=== PATIENT | male | born 1965 | race Hispanic/Latino ===

== ENCOUNTER 2020-10-15 10:34 | Emergency (ER) | payer BC, OTHER ==
--- NOTE | 2020-10-15 10:46 | Emergency Department Report ---
ED Fall HPI - General Stated Complaint: RT WRIST INJURY Time Seen by Provider: 10/15/20 10:37 Source: patient - History of Present Illness Initial Comments: The patient was evaluated in the emergency department for symptoms described in the history of present illness. He/she was evaluated in the context of the global COVID-19 pandemic, which necessitated consideration that the patient might be at risk for infection with the virus that causes COVID-19. Institutional protocols and algorithms that pertain to the evaluation of patients at risk for COVID-19 are in a state of rapid change based on information released by regulatory bodies including the CDC and federal and state organizations. These policies and algorithms were followed during the patient's care in the emergency department. Please note that these policies, procedures and recommendations changed on a rapid basis. 55-year-old male presents to the emergency room for right wrist injury. Patient states he had fell back while climbing on a tractor and injured his right wrist. Patient states he did not lose consciousness it may have bumped his head. He denies any nausea no vomiting. States that he had injured his right wrist in the past as a young teenager with glasses but no broken bones. Patient currently takes no medications on a daily basis and has no past medical history. Patient rates his pain is a 10 out of 10 of his right wrist. 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 Occurred: work Loss of Consciousness: none Prolonged Down Time?: no Symptoms Prior to Fall: none Location - Extremities: Right: Arm (Wrist) Severity scale (0 -10): 10 Quality: sharp, stabbing, aching Context: other (Slipped) Associated Symptoms: denies - Related Data Previous Rx's Medication Instructions Recorded Last Taken Type HYDROcodone/APAP 7.5-325 [[place] 1 each PO Q6HR PRN #12 tablet 10/15/20 Unknown Rx 7.5/325] Naproxen 500 mg PO BID #20 tablet 10/15/20 Unknown Rx Allergies Allergy/AdvReac Type Severity Reaction Status Date / Time No Known Allergies Allergy Unverified 10/15/20 10:45 ED Review of Systems ROS: Stated complaint: RT WRIST INJURY Other details as noted in HPI Comment: All other systems reviewed and negative ED Past Medical Hx - Medications Home Medications: Home Medications Medication Instructions Recorded Confirmed Last Taken Type HYDROcodone/APAP 7.5-325 [[place] 1 each PO Q6HR PRN #12 tablet 10/15/20 Unknown Rx 7.5/325] Naproxen 500 mg PO BID #20 tablet 10/15/20 Unknown Rx ED Physical Exam - General General appearance: alert, in no apparent distress - Head Head exam: Present: atraumatic, normocephalic - Eye Eye exam: Present: normal appearance - ENT ENT exam: Present: normal external ear exam - Neck Neck exam: Present: normal inspection, full ROM - Respiratory Respiratory exam: Absent: accessory muscle use - Cardiovascular Cardiovascular Exam: Present: regular rate - Expanded Upper Extremity Exam Right Shoulder Exam: Present: normal inspection, full ROM Upper Arm exam: Present: normal inspection, full ROM Elbow exam: Present: normal inspection, full ROM Forearm Wrist exam: Present: tenderness, swelling, deformity. Absent: full ROM Hand Wrist exam: Present: tenderness, swelling, deformity. Absent: full ROM, erythema, amputation Vascular: Present: normal capillary refill - Neurological Exam Neurological exam: Present: alert, oriented X3, normal gait - Psychiatric Psychiatric exam: Present: normal affect, normal mood - Skin Skin exam: Present: warm, dry, intact, normal color. Absent: rash ED Course Vital Signs 10/15/20 10:51 Temperature 98.8 F Pulse Rate 56 L Respiratory 16 Rate Blood Pressure 149/77 [Left] O2 Sat by Pulse 99 Oximetry ED Medical Decision Making - Radiology Data Radiology results: report reviewed Accession No. 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 FINDINGS/IMPRESSION: There is a fracture of the distal right radius with intra-articular extension with mild dorsal angulation. The ulna is preserved. Carpal rows are maintained. Signer Name: Javier Thacker MD Signed: 10/15/2020 11:46 AM Workstation Name: [id number] Transcribed By: CS Dictated By: Javier Thacker MD Electronically Authenticated By: Javier Thacker MD Signed Date/Time: 10/15/20 1146 DD/ 114 TD/TT: - Medical Decision Making 55-year-old male presents to the emergency room for right wrist injury. Patient states he had fell back while climbing on a tractor and injured his right wrist. Patient states he did not lose consciousness it may have bumped his head. He denies any nausea no vomiting. States that he had injured his right wrist in the past as a young teenager with glasses but no broken bones. Patient currently takes no medications on a daily basis and has no past medical history. Patient rates his pain is a 10 out of 10 of his right wrist. X-ray of forearm and wrist of right upper extremity. Ibuprofen 600 mg have been ordered for pain management. Ice pack given to patient patient was placed in a deluxe arm sling until we know what the x-ray results are. Patient be placed in a sugar tong OCL right wrist. I do not anticipate surgery as patient can follow-up in 5 days with orthopedist or primary care. Patient can take pain medication as needed elevate ice and use sling. Critical care attestation.: If time is entered above; I have spent that time in minutes in the direct care of this critically ill patient, excluding procedure time. ED Disposition Clinical Impression: Wrist fracture, right Qualifiers: Encounter type: initial encounter Disposition: 01 HOME / SELF CARE / HOMELESS Is pt being admited?: No Does the pt Need Aspirin: No Condition: Stable Instructions: Cast or Splint Care, Adult, [id number], Wrist Fracture Treated With Immobilization, [id number] Additional Instructions: X-ray shows you have a fracture of your wrist. Like for you to wear your splint and use your sling as ordered. Is very important you follow-up with your orthopedic provider in about 5 days or your primary care provider. Take your pain medication only as needed. Do not operate heavy machinery while taking [place]. Prescriptions: Naproxen 500 mg PO BID #20 tablet HYDROcodone/APAP 7.5-325 [[place] 7.5/325] 1 each PO Q6HR PRN #12 tablet PRN Reason: Pain Referrals: KAMARI JAMA MD [Staff Physician] - 3-5 Days
[2020-10-15 10:57] VITALS: BP 149/77
[2020-10-15] MEDS ORDERED: IBUPROFEN 600 MG TAB PO SCH ×2 (11:00→12:30)
--- NOTE | 2020-10-15 11:50 | XRay Report ---
XR wrist 2V RT INDICATION: injury with defromity COMPARISON: None. FINDINGS/IMPRESSION: There is a fracture of the distal right radius with intra-articular extension with mild dorsal angula tion. The ulna is preserved. Carpal rows are maintained. Signer Name: Javier Dash MD Signed: 10/15/2020 11:46 AM Workstation Name: [id number]
--- NOTE | 2020-10-15 11:53 | XRay Report ---
XR forearm RT INDICATION: injury with defromity COMPARISON: None. FINDINGS/IMPRESSION: There is a fracture of the distal right radius with intra-articular extension with mild dorsal angula tion. The ulna is preserved. Carpal rows are maintained. The visualized elbow appears within normal l imits. Signer Name: Javier Dash MD Signed: 10/15/2020 11:48 AM Workstation Name: [id number]
== END 2020-10-15 13:13 | disposition home or self-care (01) ==
LOC: ED 10:34
DX: S52.501A Unspecified fracture of the lower end of right radius, initial encounter for closed fracture (principal); W17.89XA Other fall from one level to another, initial encounter; Y93.89 Activity, other specified; Y92.89 Other specified places as the place of occurrence of the external cause; Y99.8 Other external cause status
CPT/HCPCS: 99283